=== PATIENT | female | born 1955 | race Caucasian/White ===

== ENCOUNTER 2016-06-02 07:24 | Day surgery (SDC) | payer OTHER ==
[2016-05-26 11:27] LABS: BASOPHILS 0.6 %; BASOPHILS ABSOLUTE 0.03 10/3/uL (0.0-0.16); EOSINOPHILS 1.9 %; EOSINOPHILS ABSOLUTE 0.09 10/3/uL (0.0-0.53); HEMATOCRIT 42.4 % (36.0-48.0); HEMOGLOBIN 14.1 g/dL (12.0-16.0); LYMPHOCYTES 28.3 %; LYMPHOCYTES ABSOLUTE 1.32 10/3/uL (0.67-4.30); MANUAL DIFF NO %; MEAN CORPUS HGB CONC 33.3 g/dL (32.0-36.0); MEAN CORPUSCULAR HEMOGLOB 28.9 pg (26.0-34.0); MEAN CORPUSCULAR VOLUME 86.9 fL (80-100); MEAN PLATELET VOLUME 10.3 fL (9.2-13.0); MONOCYTES 6.6 %; MONOCYTES ABSOLUTE 0.31 10/3/uL (0.21-1.20); NEUTROPHILS 62.6 %; NEUTROPHILS ABSOLUTE 2.92 10/3/uL (2.02-8.40); PLATELET COUNT 263 10/3/uL (150-400); RED CELL COUNT 4.88 10/6/uL (4.0-5.6); WHITE BLOOD CELLS 4.7 10/3/uL (4.5-10.5)
[2016-05-26 11:35] LABS: BUN (BLOOD UREA NITROGEN) 11 MG/DL (6-23); CALCIUM, SERUM 8.8 MG/DL (8.5-10.4); CHLORIDE, SERUM 105 MMOL/L (96-112); CO2 (CARBON DIOXIDE) 30 MMOL/L (24-34); CREATININE 0.75 MG/DL (0.55-1.02); GFR AFRICAN AMERICAN 100 ML/MIN (>=60); GFR NON AFRICAN AMERICAN 87 ML/MIN (>=60); GLUCOSE, SERUM 102 MG/DL (60-99); POTASSIUM, SERUM 4.2 MMOL/L (3.5-5.3); SODIUM, SERUM 144 MMOL/L (135-148)
--- NOTE | ~2016-06-02 | OP ---
Record Of Operation [facility] [address] [place]. [address] NAME: DOT CEDEÑO : 57 STATUS : [place] [facility] [place] PAT[place] [id number] AGE: 61 ADM/REG DATE : 06/02/16 MR#: [id number] REPORT SERV DATE: 06/02/16 DICTATED BY: KING ALFONSO DATE: 06/02/16 REPORT STATUS : Draft TRANSCRIBED BY: MODL DATE: 06/02/16 DATE OF PROCEDURE: 06/02/2016 PREOPERATIVE DIAGNOSIS: Right breast cancer. POSTOPERATIVE DIAGNOSIS: Right breast cancer. PROCEDURES: 1. Placement of a left chest wall venous port internal jugular. 2. Intraoperative fluoroscopy with interpretation. 3. Intraoperative ultrasound for vein access. INDICATION FOR THE PROCEDURE: Ms. Cedeño is a 61-year-old female, who had a left breast segmentectomy and sentinel node biopsy for a stage IIA breast cancer. She had two lesions, one of which was 2.3 cm and the other 1.9. Her lymph nodes were negative. The patient has met with the medical oncologist and chemotherapy adjuvantly has been recommended. The patient will need a port. OPERATIVE FINDINGS: After appropriate consent was noted on the chart, the patient was taken to the operating room in supine position. She was placed under monitored anesthesia without complication. The ultrasound was placed in the left neck, and her internal jugular vein was found in the normal anatomic position and patent. The neck and bilateral chest wall were prepped and draped in sterile fashion. A draped ultrasound probe was utilized to revisualize the left internal jugular vein. The skin and soft tissue overlying the vein was anesthetized with 1% lidocaine plain. The vein was accessed under direct ultrasound guidance with a single pass of the Seldinger needle. Nonpulsatile venous appearing blood was noted in the syringe and the wire passed with ease. The needle was removed and the wire was secured to the drapes for later use. The local anesthetic was utilized to anesthetize the port pocket as well as the subcutaneous tunnel site. An incision was made with a #15 blade and sharp dissection carried down to the level of the fat with Bovie cauterization. The port pocket was created and stay sutures placed of 3-0 Prolene at the 9 o'clock and 3 o'clock positions. The sutures were secured for later use. An 11 blade was utilized to lengthen the venous access site in the neck and the tunneling device utilized to create the new subcutaneous tunnel. The catheter was pulled through the tunnel. The dilator with tear away sheath were placed over the wire with constant movement of the wire. The vein was dilated. This was done under direct fluoroscopy. The dilator and wire were removed and the catheter placed with ease. The tear-away sheath was removed leaving the catheter in the vein. The catheter was pulled back to the atriocaval junction with fluoroscopy. It was then cut for length of the port site and secured to the port with the securing device. Heparinized saline was utilized to note that the port aspirated and flushed with ease. It was packed with heparinized saline. The port was then placed into the port pocket with the securing sutures. A final shot of fluoroscopy noted the port to be in good position. The tip to be at the atriocaval junction noted to be no shearing or kinking of the catheter. The wound was copiously irrigated with warm saline. Hemostasis achieved. The remainder of the local anesthetic was infiltrated in Record Of Operation [address] [id number] NAME: DOT CEDEÑO : 57 STATUS : [place] [facility] [place] PAT#: [id number] AGE: 61 ADM/REG DATE : 06/02/16 MR#: [id number] REPORT SERV DATE: 06/02/16 DICTATED BY: KING ALFONSO DATE: 06/02/16 REPORT STATUS : Draft TRANSCRIBED BY: MAURA DATE: 06/02/16 the skin and soft tissues of the port site. The incision was closed in two layers of Monocryl. The skin was cleansed and dried and Dermabond placed. Once the Dermabond had dried, Telfa and Tegaderm were placed. The patient was awoken from anesthesia without complication and taken to the PACU in stable condition for recovery. All counts were correct at the end of the case. ESTIMATED BLOOD LOSS: 10 mL. COMPLICATIONS: None. SPECIMENS: None. The patient will have a chest x-ray in recovery to ensure no pneumo or hemothorax, as well as good placement of the catheter tip. JOSEFINA/MAURA King Alfonso MD / [id number] CC: MD Valerie Braswell Brittany Baxter [facility] Bakari Mcneil MD
[~2016-06-02 07:24] MED LIST: *DENIES; ALEVE220 MG PO; SEV VITS PO; [UNRECOGNIZED DRUG - REMARK]
== END 2016-06-02 19:31 | disposition home or self-care (01) ==
LOC: SDC 07:24
PROVIDERS: Surgery Surgical Oncology
PROC: 05HN33Z Insertion of Infusion Device into Left Internal Jugular Vein, Percutaneous Approach (ICD-10-PCS; 2016-06-02)
PROC: B514YZA Fluoroscopy of Left Jugular Veins using Other Contrast, Guidance (ICD-10-PCS; 2016-06-02)
PROC: B544ZZA Ultrasonography of Left Jugular Veins, Guidance (ICD-10-PCS; 2016-06-02)
PROC: 0JH60XZ Insertion of Tunneled Vascular Access Device into Chest Subcutaneous Tissue and Fascia, Open Approach (ICD-10-PCS; principal; 2016-06-02 09:30)
DX: C50.911 Malignant neoplasm of unspecified site of right female breast (principal); M19.90 Unspecified osteoarthritis, unspecified site; Z98.890 Other specified postprocedural states; Z88.2 Allergy status to sulfonamides; Z88.1 Allergy status to other antibiotic agents; Z79.899 Other long term (current) drug therapy; Z90.89 Acquired absence of other organs; Z90.49 Acquired absence of other specified parts of digestive tract; Z90.710 Acquired absence of both cervix and uterus
CPT/HCPCS: 71010; 77001; 80048; 85025; 93005; C1751; J0690; J2405; J3010